=== PATIENT | male | born 1985 | race African-American/Black ===

== ENCOUNTER 2016-07-27 09:24 | Emergency (ER) | payer OTHER ==
[~2016-07-27] VITALS: Ht 180.3 cm; Wt 72.6 kg
[2016-07-27 09:36] VITALS: BP 112/68
[2016-07-27] MEDS ORDERED: KETOROLAC TROMETH 60MG/2ML VIAL IM ONE (10:15)
== END 2016-07-27 10:31 | disposition home or self-care (01) ==
LOC: ER 09:27
DX: S39.012A Strain of muscle, fascia and tendon of lower back, initial encounter (principal); F17.210 Nicotine dependence, cigarettes, uncomplicated; W50.2XXA Accidental twist by another person, initial encounter; Y93.67 Activity, basketball; Y99.8 Other external cause status; Y92.89 Other specified places as the place of occurrence of the external cause
CPT/HCPCS: 96372; 99283; J1885

== ENCOUNTER 2016-10-10 19:12 | Emergency (ER) | payer OTHER ==
[~2016-10-10] VITALS: Ht 180.3 cm; Wt 72.6 kg
[2016-10-10 19:30] VITALS: BP 120/83
[2016-10-10 20:10] LABS: Urine Bilirubin Negative (Negative); Urine Blood Negative /uL (Negative); Urine Color Yellow (Yellow); Urine Glucose Normal (Normal); Urine Ketone Negative (Negative); Urine Mucus FEW (None Seen); Urine Nitrite Negative (Negative); Urine RBC <1 /hpf (0 - 3); Urine Squamous Epithelial Cell FEW /hpf (<5)
[2016-10-11] MEDS ORDERED: metroNIDAZOLE 500 MG TAB PO ONE
== END 2016-10-11 00:49 | disposition home or self-care (01) ==
LOC: ER 19:32
DX: A59.9 Trichomoniasis, unspecified (principal); F17.210 Nicotine dependence, cigarettes, uncomplicated
CPT/HCPCS: 81001

== ENCOUNTER 2018-06-03 21:59 | Emergency (ER) | payer OTHER ==
[~2018-06-03] VITALS: Ht 180.3 cm; Wt 83.9 kg
[2018-06-03 22:33] VITALS: BP 109/48
== END 2018-06-04 05:35 | disposition home or self-care (01) ==
LOC: ER 22:09
DX: S90.211A Contusion of right great toe with damage to nail, initial encounter (principal); F17.210 Nicotine dependence, cigarettes, uncomplicated; W22.8XXA Striking against or struck by other objects, initial encounter; Y93.89 Activity, other specified; Y99.8 Other external cause status; Y92.89 Other specified places as the place of occurrence of the external cause
CPT/HCPCS: 73660

== ENCOUNTER 2018-06-10 10:31 | Emergency (ER) | payer SELFPAY ==
[~2018-06-10] VITALS: Ht 180.3 cm; Wt 86.2 kg
[2018-06-10 13:55] VITALS: BP 113/82
== END 2018-06-10 14:25 | disposition home or self-care (01) ==
LOC: ER 10:37
DX: S90.111D Contusion of right great toe without damage to nail, subsequent encounter (principal); X58.XXXD Exposure to other specified factors, subsequent encounter

== ENCOUNTER 2019-09-21 13:43 | Emergency (ER) | payer SELFPAY ==
[~2019-09-21] VITALS: Ht 180.3 cm; Wt 95.3 kg
[2019-09-21 14:27] LABS: Urine Bacteria NONE SEEN /hpf (None Seen); Urine Blood Negative /uL (Negative); Urine Specific Gravity 1.026 (1.001-1.035); Urine WBC 20 /hpf (0 - 3)
[2019-09-21 14:56] VITALS: BP 115/70
== END 2019-09-21 15:23 | disposition home or self-care (01) ==
LOC: ER 13:43
DX: N39.0 Urinary tract infection, site not specified (principal); F17.210 Nicotine dependence, cigarettes, uncomplicated
CPT/HCPCS: 81001

== ENCOUNTER 2023-02-18 10:58 | Emergency (ER) | payer MEDICAID, OTHER ==
[~2023-02-18] VITALS: Ht 180.3 cm; Wt 85.7 kg
[2023-02-18 13:25] LABS: COVID19 ANTIGEN SOFIA FIA POSITIVE (NEGATIVE)
[2023-02-18] MEDS ORDERED: LOPE1TAB9 PO (16:52)
[2023-02-18] MEDS ORDERED: ZOFR4T PO (16:52)
[2023-02-18] MEDS ORDERED: IBUP-1456 PO (16:52)
[2023-02-18 17:05] VITALS: BP 132/86; PULSE 76; RESP 17; TEMP 97.9; O2SAT 97
== END 2023-02-18 17:07 | disposition home or self-care (01) ==
LOC: ER 10:58
DX: U07.1 COVID-19 (principal); F17.210 Nicotine dependence, cigarettes, uncomplicated
CPT/HCPCS: 36415; 87426